=== PATIENT | male | born 1995 | race Two or more races ===

== ENCOUNTER 2020-10-07 23:06 | Emergency (ER) | payer SELFPAY ==
[~2020-10-07] VITALS: Ht 172.7 cm; Wt 79.5 kg
--- NOTE | 2020-10-07 23:30 | PHYS DOC ---
General Adult EDM: Chief Complaint: RAPID HEART RATE HPI: HPI: Patient is a 25 year old male presents for evaluation of palpitations. Patient is accompanied by his fired who states patient is "very high" off of THC. Patient smoked earlier to day-- called his friend and stated he was very anxious. Review of Systems: Review of Systems: Constitutional: Denies fever or chills. [] Eyes: Denies change in visual acuity. [] HENT: Denies nasal congestion or sore throat. [] Respiratory: Denies cough or shortness of breath. [] Cardiovascular: Denies chest pain or edema. [] GI: Denies abdominal pain, nausea, vomiting, bloody stools or diarrhea. [] : Denies dysuria. [] Musculoskeletal: Denies back pain or joint pain. [] Integument: Denies rash. [] Neurologic: Denies headache, focal weakness or sensory changes. [] Endocrine: Denies polyuria or polydipsia. [] Lymphatic: Denies swollen glands. [] Psychiatric: Denies depression or anxiety. [] Heart Score: C/O Chest Pain: N/A Risk Factors: Risk Factors: DM, Current or recent (<one month) smoker, HTN, HLP, family hist ory of CAD, obesity. Risk Scores: Score 0 - 3: 2.5% MACE over next 6 weeks - Discharge Home Score 4 - 6: 20.3% MACE over next 6 weeks - Admit for Clinical Observation Score 7 - 10: 72.7% MACE over next 6 weeks - Early Invasive Strategies Allergies: Allergies: Allergies Coded Allergies Type Severity Reaction Last Updated Verified No Known Drug Allergies 10/07/20 No Physical Exam: PE: Constitutional: Well developed, well nourished, no acute distress, non-toxic appearance. [] HENT: Normocephalic, atraumatic, bilateral external ears normal, oropharynx moist, no oral exudates, nose normal. [] Eyes: PERRLA, EOMI, conjunctiva normal, no discharge. [] Neck: Normal range of motion, no tenderness, supple, no stridor. [] Cardiovascular:Heart rate regular rhythm, no murmur [] Lungs & Thorax: Bilateral breath sounds clear to auscultation [] Abdomen: Bowel sounds normal, soft, no tenderness, no masses, no pulsatile masses. [] Skin: Warm, dry, no erythema, no rash. [] Back: No tenderness, no CVA tenderness. [] Extremities: No tenderness, no cyanosis, no clubbing, ROM intact, no edema. [] Neurologic: Alert and oriented X 3, normal motor function, normal sensory function, no focal deficits noted. [] Psychologic: Affect normal, judgement normal, mood normal. [] EKG: EKG: [] EKG performed at 2318 heart rate [address] elevation no ST depression no acute PA Radiology/Procedures: Radiology/Procedures: [] Impression: Study: XR CHEST 1V Indication: Palpitations. Comparison: None. Findings: Within normal limits cardiomediastinal silhouette and byron given low lung volumes and AP technique. No confluent airspace infiltrate, pleural effusion or pneumothorax. Impression: No acute radiographic abnormality of the chest. Electronically signed by: SUYAPA DYSON MD (10/07/2020 11:54 PM) [facility] Course & Med Decision Making: Course & Med Decision Making Pertinent Labs and Imaging studies reviewed. (See chart for details) []Treated with IV fluids. Heart rate improved to 88bpm. Patient slept. States feels better. Roommate comfortable taking patient home. Dragon Disclaimer: Haley Disclaimer: This electronic medical record was generated, in whole or in part, using a voice recognition dictation system. Departure Departure Impression: Primary Impression: Palpitations Additional Impression: Drug reaction Disposition: HOME / SELF CARE / HOMELESS Condition: STABLE Patient Instructions: Marijuana Abuse-Brief, Palpitations JOYCE FRIEDMAN DO Oct 07, 2020 23:30
[2020-10-07 23:38] LABS: BASO % 0 % (0-3); EOS # 0.2 x10^3/uL (0.0-0.7); EOS % 1 % (0-3); HEMOGLOBIN 15.8 g/dL (13.0-17.5); LYMPH # 5.4 x10^3/uL (1.0-4.8); LYMPH % 45 % (24-48); MEAN CORPUSCULAR HEMOGLOBIN 29 pg (25-35); MEAN CORPUSCULAR HGB CONC 34 g/dL (31-37); MEAN CORPUSCULAR VOLUME 84 fL (79-100); MONO # 0.6 x10^3/uL (0.0-1.1); MONO % 5 % (0-9); NEUT # 5.9 x10^3/uL (1.8-7.7); NEUT % 49 % (31-73); PLATELET COUNT 300 x10^3/uL (140-400); RED BLOOD COUNT 5.57 x10^6/uL (4.30-5.70); RED CELL DISTRIBUTION WIDTH 13.2 % (11.5-14.5); WHITE BLOOD COUNT 12.1 x10^3/uL (4.0-11.0)
--- NOTE | 2020-10-07 23:43 | EKG ---
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
[2020-10-07 23:45] LABS: CALCIUM 8.9 mg/dL (8.5-10.1); CREATININE 1.3 mg/dL (0.7-1.3); GFR 67.3; POTASSIUM 3.5 mmol/L (3.5-5.1)
[2020-10-07] MEDS ORDERED: IV NORMAL SALINE 1000ML BAG 1,000 ML IV ONE (23:45)
[2020-10-07 23:50] LABS: ALBUMIN 4.3 g/dL (3.4-5.0); TOTAL BILIRUBIN 0.6 mg/dL (0.2-1.0); TOTAL PROTEIN 8.4 g/dL (6.4-8.2)
--- NOTE | 2020-10-07 23:57 | RAD ---
Study: XR CHEST 1V Indication: Palpitations. Comparison: None. Findings: Within normal limits cardiomediastinal silhouette and byron given low lung volumes and AP technique. No confluent airspace infiltrate, pleural effusion or pneumothorax. Impression: No acute radiographic abnormality of the chest. Electronically signed by: SUYAPA DYSON MD (10/07/2020 11:54 PM) [facility]
[2020-10-08 02:45] VITALS: BP 110/65
== END 2020-10-08 02:25 | disposition home or self-care (01) ==
LOC: ER 23:06
DX: R00.2 Palpitations (principal); T50.905A Adverse effect of unspecified drugs, medicaments and biological substances, initial encounter; F17.200 Nicotine dependence, unspecified, uncomplicated; Y92.89 Other specified places as the place of occurrence of the external cause
CPT/HCPCS: 36415; 71045; 80053; 84484; 85025; 93005; 96360; 99285; J7030

== ENCOUNTER 2021-04-25 16:52 | Emergency (ER) | payer BC ==
[~2021-04-25] VITALS: Ht 165.1 cm; Wt 89.8 kg
[2021-04-25 17:15] VITALS: BP 137/105
[2021-04-25 17:34] LABS: BILIRUBIN,URINE NEGATIVE (NEG); CLARITY,URINE CLEAR; COLOR,URINE YELLOW; NITRITE,URINE NEGATIVE (NEG); PH,URINE 5.5 (<5.0-8.0); PROTEIN,URINE 100 mg/dL (NEG-TRACE); UROBILINOGEN,URINE 0.2 mg/dL (0.2 mg/dL)
[2021-04-25 18:24] LABS: BACTERIA,URINE 0 /HPF (0-FEW)
[2021-04-25] MEDS ORDERED: ACYC-12 PO (18:24)
--- NOTE | 2021-04-25 18:25 | PHYS DOC ---
Past Medical History Past Medical History: No Pertinent History Past Surgical History: No Surgical History Smoking Status: Never Smoker Alcohol Use: None General Adult EDM: Chief Complaint: SEXUALLY TRANSMITTED DISEASE HPI: HPI: Patient is a 25-year-old male presents to the emergency department concerning lesions of his mouth that started yesterday. Patient denies pain to these lesions. Patient is concerned of sexually transmitted diseases. Reports unpr otected anal and oral sex. 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 Denies lesions to his penis or genitals. Denies itching or other rashes to his skin. Denies recent fever or chills, denies recent immunizations, denies chest pains or shortness of breath. Patient denies other physical complaints or physical concerns. Review of Systems: Review of Systems: 14 body systems of review of systems have been reviewed. See HPI for pertinent positives and negative responses, otherwise all other systems are negative, nonpertinent or noncontributory. Constitutional: Negative except as outlined in HPI above. Skin: Negative except as outlined in HPI above. Eyes: Negative except as outlined in HPI above. HENT: Negative except as outlined in HPI above. Respiratory: Negative except as outlined in HPI above. Cardiovascular: Negative except as outlined in HPI above. GI: Negative except as outlined in HPI above. : Negative except as outlined in HPI above. Musculoskeletal: Negative except as outlined in HPI above. Integument: Negative except as outlined in HPI above. Neurologic: Negative except as outlined in HPI above. Endocrine: Negative except as outlined in HPI above. Lymphatic: Negative except as outlined in HPI above. Psychiatric: Negative except as outlined in HPI above. Heart Score: C/O Chest Pain: No Risk Factors: Risk Factors: DM, Current or recent (<one month) smoker, HTN, HLP, family history of CAD, obesity. Risk Scores: Score 0 - 3: 2.5% MACE over next 6 weeks - Discharge Home Score 4 - 6: 20.3% MACE over next 6 weeks - Admit for Clinical Observation Score 7 - 10: 72.7% MACE over next 6 weeks - Early Invasive Strategies Allergies: Allergies: Allergies Coded Allergies Type Severity Reaction Last Updated Verified No Known Drug Allergies 10/07/20 No Physical Exam: PE: Constitutional: Well developed, well nourished, no acute distress, non-toxic appearance. 25-year-old male in no apparent distress. HENT: Normocephalic, atraumatic. Oropharynx moist, pink, no deep tissue infectious process appreciated, no uvular edema or deviation, no laryngeal edema. Patient does have oral lesions to the roof of mouth, gumline to the left and right lower and upper, tongue, tonsillar pillar on the right, no lesions on buccal mucosa or lip mucosa. Lesions measure between one and 3 mm with clearly demarcated borders white in color. Eyes: Conjunctiva normal, no discharge. Neck: Normal range of motion, no stridor. Cardiovascular: No cyanosis appreciated, distal cap refill less than 2 seconds. Lungs & Thorax: Patient is in no respiratory distress, no audible adventitious lung sounds appreciated. Abdomen: Nontender, no abnormalities noted. Skin: Warm, dry, no erythema, no rash. Back: No tenderness, no deformities. Extremities: No tenderness, no cyanosis, no clubbing, ROM intact, no edema. Neurologic: Alert and oriented X 3, normal motor function, normal sensory function, no focal deficits noted. Psychologic: Affect normal, judgement normal, mood normal. Current Patient Data: Labs: Laboratory Tests Test 04/25/21 17:15 Urine Collection Type Void Urine Color Yellow Urine Clarity Clear Urine pH 5.5 (<5.0-8.0) Urine Specific [place] 1.015 (1.000-1.030) Urine Protein 100 mg/dL (NEG-TRACE) Urine Glucose (UA) Negative mg/dL (NEG) Urine Ketones (Stick) Trace mg/dL (NEG) Urine Blood Trace (NEG) Urine Nitrite Negative (NEG) Urine Bilirubin Negative (NEG) Urine Urobilinogen Dipstick 0.2 mg/dL (0.2 mg/dL) Urine Leukocyte Esterase Negative (NEG) Urine RBC 1-2 /HPF (0-2) Urine WBC 1-4 /HPF (0-4) Urine Squamous Epithelial Cells Occ /LPF Urine Bacteria Pending Vital Signs: Vital Signs Date Time Temp Pulse Resp B/P (MAP) Pulse Ox O2 Delivery O2 Flow Rate FiO2 04/25/21 17:15 99.1 99 16 137/105 (116) 99 Room Air 99.1 EKG: EKG: [] Radiology/Procedures: Radiology/Procedures: [] Course & Med Decision Making: Course & Med Decision Making Pertinent Labs and Imaging studies reviewed. (See chart for details) 25-year-old male, vital signs reviewed, presents emerged from concerning oral lesions physical examination concerning for herpetic lesions of the oral cavity, considered aphthous stomatitis however lesions are not painful. After a extensive interview with patient no sexual history, will prescribe acyclovir regimen, will order HIV, HSV, syphilis testing. Discussed safe sex practices with patient, medication dosing and side effects, patient gave verbal understanding of and is amenable to ED discharge planning. Discussed with the patient all findings and diagnostic testing as well as the need to follow-up with their primary care provider for further evaluation and treatment or return to the ED if any new or worsening symptoms. Strict return precautions were also discussed at length, the patient voiced understanding and agreement with the discharge planning. The patient was nontoxic in appearance, in no apparent distress, and hemodynamically stable at the time of disposition. Dragon Disclaimer: Dragon Disclaimer: This electronic medical record was generated, in whole or in part, using a voice recognition dictation system. Departure Departure Impression: Primary Impression: Oral lesion Disposition: HOME / SELF CARE / HOMELESS Condition: GOOD Referrals: NO PCP (PCP) Additional Instructions: You were seen today in the emergency department for oral lesions. After a long discussion of your sexual history, you and I have made a joint decision to test you for HIV, herpes 1 and 2, syphilis. I have started you on an antiviral called acyclovir, please take as directed until complete. Your test results should be available within the next few days. You may access them through a patient portal or coming in personally to review your test results through medical records. Please follow-up with your primary care physician for ongoing treatment of your oral lesions. Return to the emergency department for worsening symptoms or other concerns. Please refrain from sexual activity until lesions have resolved, afterwards please use condom barrier protection sex to help minimize the transmission of sexually transmitted diseases. Thank you for visiting our Emergency Department. It was a pleasure taking care of you today in the emergency department and we appreciate you trusting us with your care. If any additional problems come up don't hesitate to return to visit us. Please follow up with your primary care provider so they can plan additional care if needed and know about the problem that you had. If symptoms worsen come back to the Emergency Department. Any concerning symptoms that start such as chest pain, shortness of air, weakness or numbness on one side of the body, running high fevers or any other concerning symptoms return to the ER. Scripts Acyclovir (ACYCLOVIR) 400 Mg Tablet 1 TAB PO BID for oral lesions, #60 TAB 3 Refills Prov: JAMIE GERARD APRN 04/25/21 JAMIE GERARD APRN Apr 25, 2021 18:25
== END 2021-04-25 18:35 | disposition home or self-care (01) ==
LOC: ER 16:52
DX: K13.79 Other lesions of oral mucosa (principal)
CPT/HCPCS: 36415; 81001; 86592; 86703; 99283

== ENCOUNTER 2021-09-29 10:01 | Emergency (ER) | payer BC ==
[~2021-09-29] VITALS: Ht 167.6 cm; Wt 92.2 kg
[~2021-09-29 10:01] MED LIST: ACYC-12 PO
[2021-09-29] MEDS ORDERED: IBUPROFEN 100 MG/5 ML ORAL.SUSP. PO ONE (10:45)
[2021-09-29 11:16] LABS: MONONUCLEOSIS PATIENT NEGATIVE (NEGATIVE)
[2021-09-29] MEDS ORDERED: CHLO15MO2 PO (12:38)
[2021-09-29] MEDS ORDERED: DOXY100C3 PO (12:38)
--- NOTE | 2021-09-29 12:38 | PHYS DOC ---
Past Medical History Past Medical History: No Pertinent History Past Surgical History: No Surgical History Smoking Status: Never Smoker Alcohol Use: None General Adult EDM: Chief Complaint: SORE THROAT HPI: HPI: Patient is a 26-year-old male who presents to the emergency department complaining of sore throat for the past 2 days, ongoing gingivitis of the gums, and oral infections. Patient denies recent fever or chills. Reports he seen a dentist for his gingivitis approximately a month ago, patient states he took some medications that seemed to help but symptoms returned. Patient does not know what medications he took. Patient states he does have unprotected sex with men. Reports he has been to the health department to get checked for STIs. Patient denies recent fever or chills. Denies other physical complaints or physical concerns. Review of Systems: Review of Systems: 14 body systems of review of systems have been reviewed. See HPI for pertinent positives and negative responses, otherwise all other systems are negative, nonpertinent or noncontributory. Constitutional: Negative except as outlined in HPI above. Skin: Negative except as outlined in HPI above. Eyes: Negative except as outlined in HPI above. HENT: Negative except as outlined in HPI above. Respiratory: Negative except as outlined in HPI above. Cardiovascular: Negative except as outlined in HPI above. GI: Negative except as outlined in HPI above. : Negative except as outlined in HPI above. Musculoskeletal: Negative except as outlined in HPI above. Integument: Negative except as outlined in HPI above. Neurologic: Negative except as outlined in HPI above. Endocrine: Negative except as outlined in HPI above. Lymphatic: Negative except as outlined in HPI above. Psychiatric: Negative except as outlined in HPI above. Heart Score: C/O Chest Pain: No Risk Factors: Risk Factors: DM, Current or recent (<one month) smoker, HTN, HLP, family history of CAD, obesity. Risk Scores: Score 0 - 3: 2.5% MACE over next 6 weeks - Discharge Home Score 4 - 6: 20.3% MACE over next 6 weeks - Admit for Clinical Observation Score 7 - 10: 72.7% MACE over next 6 weeks - Early Invasive Strategies Current Medications: Current Medications Medications (Trade) Dose Ordered Sig/Noris Start Time Stop Time Status Last Admin Dose Admin Ibuprofen (Children'S Motrin) 600 mg 1X ONCE 09/29/21 10:45 09/29/21 10:50 DC 09/29/21 10:55 600 MG Allergies: Allergies: Allergies Coded Allergies Type Severity Reaction Last Updated Verified No Known Drug Allergies 10/07/20 No Physical Exam: PE: Constitutional: Well developed, well nourished, no acute distress, non-toxic appearance. 26-year-old male in no apparent distress. HENT: Normocephalic, atraumatic. Gingiva erythematous with multiple lesions, there are areas with vesicles between teeth, open lesions to the tongue and oral mucosa, patient is speaking in normal voice tones, there is no drooling, no trismus. Oropharynx is erythematous without tonsillar swelling or cobblestoning, there is no uvular edema or deviation, there is no laryngeal edema present. There is no lymphadenopathy of the head or neck, bilateral TMs intact and within normal limits. Eyes: Conjunctiva normal, no discharge. Neck: Normal range of motion, no stridor. Cardiovascular: No cyanosis appreciated, distal cap refill less than 2 seconds. Lungs & Thorax: Patient is in no respiratory distress, no audible adventitious lung sounds appreciated. Lung sounds are clear to auscultation. Abdomen: Nontender, no abnormalities noted. Skin: Warm, dry, no erythema, no rash. Back: No tenderness, no deformities. Extremities: No tenderness, no cyanosis, no clubbing, ROM intact, no edema. Neurologic: Alert and oriented X 3, normal motor function, normal sensory function, no focal deficits noted. Psychologic: Affect normal, judgement normal, mood normal. Current Patient Data: Labs: Laboratory Tests Test 09/29/21 10:33 09/29/21 10:45 Group A Streptococcus Rapid Negative (NEGATIVE) Heterophil Agglutinins Negative (NEGATIVE) Vital Signs: Vital Signs Date Time Temp Pulse Resp B/P (MAP) Pulse Ox O2 Delivery O2 Flow Rate FiO2 09/29/21 10:16 98.8 94 16 125/77 (93) 97 Room Air 98.8 EKG: EKG: [] Radiology/Procedures: Radiology/Procedures: [] Course & Med Decision Making: Course & Med Decision Making Pertinent Labs and Imaging studies reviewed. (See chart for details) 26-year-old male, vital signs reviewed, presents emergency department concerning oral lesions and oral infection. Physical examination is concerning for viral infection, patient does have oral sex with men, patient states he does have anal warts and has oral sex after having anal penetration of himself, patient's oral mucosa does have lesions on both gingiva and buccal areas along with lesions on tongue. The oropharynx was erythematous, concerning for trench mouth, will order rapid strep, HSV 1 and 2 testing, mononucleosis screen, GC chlamydia PCR of throat. Patient strep lab is negative, discussed with patient will prophylactically treat for gonorrhea and chlamydia, will also give prescription for chl orhexidine/Peridex swish and spit for concerning signs of trench mouth, strict follow-up with primary care soon, discussed all prescription medications and side effects, return to ER precautions and concerns were reviewed, patient gave verbal understanding of and is amenable to ED discharge planning. Haley Disclaimer: Haley Disclaimer: This electronic medical record was generated, in whole or in part, using a voice recognition dictation system. Departure Departure Impression: Primary Impression: Oral infection Additional Impressions: Gingivitis Trench mouth Disposition: HOME / SELF CARE / HOMELESS Condition: GOOD Referrals: NO PCP (PCP) Patient Instructions: Gingivitis, Trench Mouth Additional Instructions: You were seen today in the emergency department for ongoing oral lesions. I am treating you with a intramuscular antibiotic called Rocephin, and starting you on a antibiotic called doxycycline that you will take twice a day for the next 7 days. Your oral lesions closely mimic an infectious process called trench mouth, therefore I am also treating you with a mouthwash that you should swish and spit 1-2 times a day, your medications have been sent to the pharmacy of your choice. Please follow-up with your primary care physician for reevaluation for consideration of ongoing antibiotic treatment. See your dentist again this month for reevaluation and ongoing treatment recommendations. Return to the emergency department for worsening symptoms or other concerns. Thank you for visiting our Emergency Department. It was a pleasure taking care of you today in the emergency department and we appreciate you trusting us with your care. If any additional problems come up don't hesitate to return to visit us. Please follow up with your primary care provider so they can plan additional care if needed and know about the problem that you had. If symptoms worsen come back to the Emergency Department. Any concerning symptoms that start such as chest pain, shortness of air, weakness or numbness on one side of the body, running high fevers or any other concerning symptoms return to the ER. Scripts Chlorhexidine Gluconate (PERIDEX) 15 Ml Mouthwash 15-30 ML PO TID for oral infection for 8 Days, #473 ML 0 Refills Prov: JAMIE GERARD APRN 09/29/21 Doxycycline Hyclate (DOXYCYCLINE HYCLATE) 100 Mg Capsule 1 CAP PO BID for oral infection, #14 CAP 0 Refills Prov: JAMIE GERARD APRN 09/29/21 JAMIE GERARD APRN Sep 29, 2021 12:38
[2021-09-29] MEDS ORDERED: cefTRIAXone IM 1 GM VIAL IM ONE (12:45)
[2021-09-29 12:59] VITALS: BP 122/80
== END 2021-09-29 13:10 | disposition home or self-care (01) ==
LOC: ER 10:01
DX: K05.10 Chronic gingivitis, plaque induced (principal); A69.1 Other Vincent's infections
CPT/HCPCS: 36415; 86308; 86695; 87070; 87880; 96372; 99283; J0696